=== PATIENT | male | born 1995 | race Two or more races ===

== ENCOUNTER 2018-05-11 02:41 | Emergency (ER) | payer SELFPAY ==
[~2018-05-11] VITALS: Ht 175.3 cm; Wt 81.6 kg
[2018-05-11] MEDS ORDERED: HYDROCODONE/APAP 5-325MG TABLET ONE (03:10)
[2018-05-11] MEDS ORDERED: HYDROCODONE/APAP 5-325MG TABLET PO ONE (03:15)
--- NOTE | 2018-05-11 03:31 | NUR ---
Patient discharged to home in stable conditon. Written and verbal after care instructions given. Patient verbalizes understanding of instructions. Ambulated from ER with stable gait. All belongings with patient.
[2018-05-11 03:32] VITALS: BP 121/78
== END 2018-05-11 03:33 | disposition home or self-care (01) ==
LOC: ER 02:44
DX: S83.92XA Sprain of unspecified site of left knee, initial encounter (principal); X58.XXXA Exposure to other specified factors, initial encounter; Y93.02 Activity, running; Y92.89 Other specified places as the place of occurrence of the external cause; Y99.8 Other external cause status
CPT/HCPCS: A4663